=== PATIENT | female | born 1975 | race Two or more races ===

== ENCOUNTER 2023-05-04 19:15 | Emergency (ER) | payer SELFPAY ==
[~2023-05-04] VITALS: Ht 160 cm; Wt 75.9 kg
[2023-05-04 19:23] VITALS: TEMP 98.5
[2023-05-04 19:53] VITALS: BP 152/103; PULSE 83; RESP 15
== END 2023-05-04 20:37 | disposition left against medical advice (07) ==
LOC: EMS 19:16
DX: Z53.21 Procedure and treatment not carried out due to patient leaving prior to being seen by health care provider (principal)
CPT/HCPCS: 99281; Z7502

== ENCOUNTER 2023-06-01 20:06 | Emergency (ER) | payer SELFPAY | END 2023-06-01 20:33 | disposition left against medical advice (07) | LOC: EMS 20:07 | DX: Z53.21 Procedure and treatment not carried out due to patient leaving prior to being seen by health care provider (principal) ==